=== PATIENT | female | born 1970 | race American Indian/Alaskan Native ===

== ENCOUNTER 2020-07-13 07:30 | Day surgery (SDC) | payer BC, OTHER ==
[2020-07-10 14:53] LABS: Hematocrit 37.1 % (30.3-42.9); Hemoglobin 12.4 gm/dl (10.1-14.3); Mean Corpuscular HGB Conc 33 % (30-34); Mean Corpuscular Volume 92 fl (79-97); Platelet Count 247 K/mm3 (140-440); Red Blood Count 4.02 M/mm3 (3.65-5.03); Red Cell Distribution Width 14.4 % (13.2-15.2)
[2020-07-10 15:13] LABS: BUN/Creatinine Ratio 17; Blood Urea Nitrogen 10 mg/dL (7-17); Calcium 8.8 mg/dL (8.4-10.2); Hemolysis Index 55
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
[2020-07-13] MEDS ORDERED: HYDROmorphone 1 MG/1 ML INJ IV PRN ×2 (07:54)
[2020-07-13] MEDS ORDERED: ONDANSETRON 4 MG/2 ML INJ IV PRN (07:54)
[2020-07-13] MEDS ORDERED: LACTATED RINGERS 1,000 ML IV SCH (08:00)
[2020-07-13] MEDS ORDERED: MIDAZOLAM 2 MG/2 ML INJ IV NR (08:00)
[2020-07-13] MEDS ORDERED: LOPERAMIDE 2 MG CAP PO ONE (08:05)
--- NOTE | 2020-07-13 08:05 | Anesthesia Day of Surgery ---
Anesthesia Day of Surgery - Day of Surgery Patient Examined: Yes Patient H&P Reviewed: Yes Patient is NPO: Yes
--- NOTE | 2020-07-13 08:07 | Anesthesia Consultation ---
Anesthesia Consult and Med Hx Date of service: 07/13/20 - Airway Anesthetic Teeth Evaluation: Crowns, Bridges ROM Head & Neck: Adequate Mental/Hyoid Distance: Adequate Mallampati Class: Class II Intubation Access Assessment: Good - Pre-Operative Health Status ASA Pre-Surgery Classification: ASA2 Proposed Anesthetic Plan: General - Pulmonary Hx Asthma: Yes (Not treated in over a year. +2FS) - Cardiovascular System Hx Hypertension: Yes - Central Nervous System Hx Psychiatric Problems: No - Gastrointestinal Hx Gastroesophageal Reflux Disease: Yes (Occasional) - Endocrine Hx Non-Insulin Dependent Diabetes: Yes - Hematic Hx Anemia: Yes (Past hx) - Other Systems Hx Cancer: No
[2020-07-13] MEDS ORDERED: propofoL 200 MG/20 ML VIAL IV ONE (08:41)
[2020-07-13] MEDS ORDERED: LIDOCAINE MPF (2%) 20 MG/1 ML VIAL 5 ML ONE (08:41)
[2020-07-13] MEDS ORDERED: HYDROmorphone 1 MG/1 ML INJ ONE (08:41)
[2020-07-13] MEDS ORDERED: SODIUM CHLORIDE 0.9% IRR 1,500 ML BOTTLE IR ONE (09:00)
[2020-07-13] MEDS ORDERED: SODIUM CHLORIDE 0.9% IRRIG SOLN 3000 ML IR ONE (09:00)
[2020-07-13] MEDS ORDERED: ONDANSETRON 4 MG/2 ML INJ ONE (09:38)
[2020-07-13] MEDS ORDERED: KETOROLAC 30 MG/1 ML INJ ONE (09:38)
--- NOTE | 2020-07-13 09:46 | Operative Report ---
Operative Report Operative Report: Date of procedure: July 13, 2020 Pre-operative diagnosis: Menometrorrhagia and leiomyomata Post-operative diagnosis: Same Procedure name(s): Operative hysteroscopy with dilatation curettage Surgeon: Tesfaye Bae MD Metaphysics Teacher: [] Anesthesia: General EBL: Minimal Complications: None Findings: Patient with distorted endometrial cavity due to extrinsic pressure from leiomyomata the tubal opening were seen bilaterally there were no intracavitary masses seen just thickened endometrium Specimen(s): Endometrial curettage Procedure: Patient was brought to operating room. Where general anesthesia was induced on difficulty. She was placed in the dorsal lithotomy position. P repped and draped in usual sterile manner. Urinary bladder was emptied with a red rubber catheter. Speculum was placed in the vagina. Tenaculum was placed at 12:00. The cervix was dilated progressively to operative hysteroscope could be placed without any difficulty. The hysteroscope was placed through the cervical os without any complications with the findings noted above. Perform a banjo curetting until a gritty sensation was felt throughout the uterine cavity removed a moderate amount of tissue. The passes with the polyp forceps revealed no further tissue again the banjo curetting was done without any return of further tissue. Post procedure hysteroscopy showed a thinner endometrium. Our instruments are removed. The patient tolerated the procedure well and was awakened in the operating room. Accompanied to the recovery room in good condition
--- NOTE | 2020-07-13 09:52 | Short Stay Summary ---
Short Stay Documentation Date of service: 07/13/20 - History Past Medical History: other (SEE HPI FOR DETAILS) Past Surgical History: Other (SEE HPI FOR DETAILS) Social history: full code, other (SEE HPI FOR DETAILS) - Allergies and Medications Current Medications: Allergies No Known Allergies Allergy (Verified 07/13/20 08:07) Home Medications Medication Instructions Recorded Confirmed Last Taken Type Dapagliflozin/Saxagliptin HCl 1 each PO DAILY 07/06/20 07/13/20 07/12/20 History [Qtern 10 mg-5 mg Tablet] Losartan [Cozaar] 50 mg PO QDAY 07/06/20 07/13/20 07/12/20 20:30 History Norethindrone-Ethinyl Estrad 1 tab PO DAILY 07/06/20 07/13/20 07/12/20 History [Alyacen 1-35 28 Tablet] DOXYCYCLINE Hyclate [Vibramycin 100 mg PO Q12HR #14 capsule 07/13/20 Unknown Rx CAP] Ibuprofen [Motrin 800 MG tab] 800 mg PO Q6H PRN #30 tablet 07/13/20 Unknown Rx Active Medications Hydromorphone HCl (Dilaudid) 0.25 mg IV Q10MIN PRN PRN Reason: Pain, Moderate (4-6) Hydromorphone HCl (Dilaudid) 0.5 mg IV Q10MIN PRN PRN Reason: Pain , Severe (7-10) Lactated Ringer's (Lactated Ringers) 1,000 mls @ 125 mls/hr IV DIRECT ELLEN Last Admin: 07/13/20 08:35 Dose: 125 mls/hr Documented by: Midazolam HCl (Versed) 2 mg IV PREOP NR Stop: 07/13/20 23:59 Last Admin: 07/13/20 08:51 Dose: 2 mg Documented by: Ondansetron HCl (Zofran) 4 mg IV ONCE PRN PRN Reason: Nausea And Vomiting - Physical exam General appearance: no acute distress HEENT: Atraumatic Lungs: Normal air movement Breasts: deferred Heart: Regular rate Gastrointestinal: normal, no tenderness, no distended Rectal Exam: no deferred Neurological: Normal gait - Brief post op/procedure progress note Date of procedure: 07/13/20 (See dictated operative note) - Hospital course Hospital course: Patient was admitted underwent the above him procedure without any co mplications. Patient will be discharged with follow-up in office in 1-2 weeks for postop check. - Disposition Condition at discharge: Good Disposition: DC-01 TO HOME OR SELFCARE - Discharge Diagnoses (1) Menometrorrhagia Status: Chronic (2) Intramural leiomyoma of uterus Status: Chronic Short Stay Discharge Plan Activity: no restrictions Diet: regular Additional Instructions: Patient office for fever chills, nausea, vomiting, pain uncontrolled by pain relief or extreme any heavy vaginal bleeding. Follow up with: LAUREN SALAZAR MD [Primary Care Provider] - 7 Days Prescriptions: Ibuprofen [Motrin 800 MG tab] 800 mg PO Q6H PRN #30 tablet PRN Reason: Pain DOXYCYCLINE Hyclate [Vibramycin CAP] 100 mg PO Q12HR #14 capsule
[2020-07-13 12:10] VITALS: BP 125/74
--- NOTE | 2020-07-13 15:31 | Post Anesthesia Evaluation ---
- Post Anesthesia Evaluation Patient Participated: Yes Airway Patent: Yes Stable Respiratory Function: No Nausea/Vomiting: Yes Temp > 96.8F: Yes Pain Manageable: Yes Adequeate Hydration: Yes Anesthesia Complications: No Block Receding Appropriately: Not Applicable Patient on Ventilator: No
== END 2020-07-13 07:31 | disposition home or self-care (01) ==
LOC: OR 07:30
PROVIDERS: ATTEND Obstetrics & Gynecology
DX: N92.1 Excessive and frequent menstruation with irregular cycle (principal); D25.1 Intramural leiomyoma of uterus; I10 Essential (primary) hypertension; J45.909 Unspecified asthma, uncomplicated; K21.9 Gastro-esophageal reflux disease without esophagitis; E11.9 Type 2 diabetes mellitus without complications; Z79.899 Other long term (current) drug therapy; Z98.891 History of uterine scar from previous surgery; Z98.890 Other specified postprocedural states
CPT/HCPCS: 36415; 58558; 80048; 82962; 84703; 85027; 88305; A4217; J1170; J1885; J2250; J2405; J2704; J7120

== ENCOUNTER 2021-07-18 08:00 | Day surgery (SDC) | payer BC ==
[2021-07-15 10:12] LABS: Basophils # (Auto) 0.1 K/mm3 (0.0-0.1); Eosinophils # (Auto) 0.3 K/mm3 (0.0-0.4); Eosinophils % (Auto) 3.4 % (0.0-4.3); Hematocrit 39.7 % (30.3-42.9); Hemoglobin 13.1 gm/dl (10.1-14.3); Lymphocytes # (Auto) 1.6 K/mm3 (1.2-5.4); Lymphocytes % (Auto) 20.8 % (13.4-35.0); Mean Corpuscular HGB Conc 33 % (30-34); Mean Corpuscular Volume 93 fl (79-97); Monocytes # (Auto) 0.4 K/mm3 (0.0-0.8); Monocytes % (Auto) 4.8 % (0.0-7.3); Platelet Count 241 K/mm3 (140-440); Red Blood Count 4.29 M/mm3 (3.65-5.03); Red Cell Distribution Width 14.3 % (13.2-15.2)
[2021-07-15 10:18] LABS: Blood Urea Nitrogen 11 mg/dL (7-17); Calcium 9.6 mg/dL (8.4-10.2); Hemolysis Index 1
[2021-07-15 10:25] LABS: BUN/Creatinine Ratio 22
--- NOTE | 2021-07-15 10:37 | Anesthesia Consultation ---
Anesthesia Consult and Med Hx Date of service: 07/18/21 - Airway Anesthetic Teeth Evaluation: Good, Bridges ROM Head & Neck: Adequate Mental/Hyoid Distance: Adequate Mallampati Class: Class III Intubation Access Assessment: Possibly Difficult - Pulmonary Exam CTA: Yes - Cardiac Exam Cardiac Exam: RRR - Pre-Operative Health Status ASA Pre-Surgery Classification: ASA2 Proposed Anesthetic Plan: General - Pulmonary Hx Smoking: No Hx Asthma: Yes (no recent inhaler use) Hx Respiratory Symptoms: No - Cardiovascular System Hx Hypertension: Yes Hx Heart Attack/AMI: No Hx Percutaneous Transluminal Coronary Angioplasty (PTCA): No Hx Cardia Arrhythmia: No - Central Nervous System Hx Neuromuscular Disorder: Yes (RLE neuropathy; work up ongoing) CVA: No - Endocrine Hx Renal Disease: No Hx Liver Disease: No Hx Non-Insulin Dependent Diabetes: Yes Hx Thyroid Disease: No - Other Systems Hx Obesity: Yes (BMI 34) - Additional Comments Anesthesia Medical History Comments: Reports hx awareness under anesthesia dur ing myomectomy and during under GA.
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
[~2021-07-18 08:00] MED LIST: ACETAMINOPHEN 500 MG TAB PO SCH; BUPIVACAINE/PF (0.25%) 2.5 MG/ML 30 ML VIAL INFILTRATI ONE; CELECOXIB 200 MG CAP PO NR; GABAPENTIN 300 MG CAP PO NR; INSULIN REGULAR, HUMAN 100 UNITS/1 ML SUB-Q SCH; KETAMINE/STERILE WATER 50 MG/ML SYRINGE ONE; LACTATED RINGERS 1,000 ML IV SCH; LIDOCAINE PF 100 MG/5 ML (CARDIAC SYRINGE) IV ONE; MIDAZOLAM 2 MG/2 ML INJ IV NR; NEOMY 40 MG/POLYMYXIN B 200,000 UNITS/ML (GU) AMPULE IR ONE; ONDANSETRON 4 MG/2 ML INJ ONE; ROCURONIUM 50 MG/5 ML INJ IV ONE; SCOPOLAMINE TRANSDERMAL PATCH 72 HR TD NR; ceFAZolin/STERILE WATER 2 GM/20 ML SYRINGE IV NR; ceFAZolin/Water 2 GM/20 ML 2 GM/20 ML SYRINGE IV SCH; dexAMETHasone 20 MG/5 ML VIAL ONE; fentaNYL 100 MCG/2 ML INJ IV PRN; propofoL 200 MG/20 ML VIAL IV ONE
--- NOTE | 2021-07-18 08:44 | Anesthesia Day of Surgery ---
Anesthesia Day of Surgery - Day of Surgery Patient Examined: Yes Patient H&P Reviewed: Yes Patient is NPO: Yes
[2021-07-18] MEDS ORDERED: ePHEDrine SULFATE 50 MG/1 ML INJ ONE (08:51)
[2021-07-18] MEDS ORDERED: ONDANSETRON 4 MG/2 ML INJ IV PRN (09:00)
[2021-07-18] MEDS ORDERED: oxyCODONE /ACETAMINOPHEN 5-325MG TAB PO PRN (09:00)
[2021-07-18] MEDS ORDERED: SODIUM CHLORIDE 0.9% IRR 1,500 ML BOTTLE IR ONE (09:01)
[2021-07-18] MEDS ORDERED: NEOMY 40 MG/POLYMYXIN B 200,000 UNITS/ML (GU) AMPULE IR ONE (09:01)
[2021-07-18] MEDS ORDERED: SODIUM CHLORIDE 0.9% IRRIG SOLN 2000 ML IR ONE (09:02)
[2021-07-18] MEDS ORDERED: METHYLENE BLUE 50 MG/10 ML AMP ONE (09:34)
[2021-07-18] MEDS ORDERED: PHENYLEPHRINE/NS 1,000 MCG/10 ML SYRINGE (OR USE) IV ONE ×2 (09:35→11:00)
[2021-07-18] MEDS ORDERED: METHYLENE BLUE 50 MG/10 ML AMP IRRIGATION ONE (09:38)
[2021-07-18] MEDS ORDERED: LOSARTAN 50 MG TAB PO SCH (10:00)
[2021-07-18] MEDS ORDERED: HYDROmorphone 1 MG/1 ML INJ ONE (10:42)
[2021-07-18] MEDS ORDERED: ROCURONIUM 50 MG/5 ML INJ IV ONE (10:50)
[2021-07-18] MEDS ORDERED: GLYCOPYRROLATE 0.4 MG/2 ML INJ ONE (10:59)
[2021-07-18] MEDS ORDERED: NEOSTIGMINE 10MG/10 ML INJ MDV ONE (10:59)
[2021-07-18] MEDS ORDERED: KETOROLAC 30 MG/1 ML INJ ONE (11:33)
[2021-07-18] MEDS ORDERED: KETOROLAC 30 MG/1 ML INJ IV SCH (11:35)
--- NOTE | 2021-07-18 11:49 | Operative Report ---
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 Fibroid uterus bilaterally interrupted fallopian tubes with normal ovaries bilaterally Specimen(s): Uterus with cervix and bilateral fallopian tubes Procedure: Patient was brought to the operating room where general anesthesia was induced without difficulty. Patient was placed in the dorsal lithotomy position. Prepped and draped in the usual sterile manner for robotic procedure. Erazo catheter was placed without difficulty. Speculum was placed in the vagina. A medium V-Care Uterine manipulator was placed without difficulty. Attention was now switched to the patient's abdomen. A vertical supra-umbilicus incision was made with a scalpel. A 10-12 trocar was placed in this incision under direct visualization. Intra-abdominal placement was verified with no evidence of internal organ damage. The patient was insufflated approximately 3-1/2 L of CO2 gas. She was placed in Trendelenburg position. The patient pelvic findings were noted as above. It was determined that the patient was a candidate for robotic procedure. On both sides the umbilical incision at about 8 cm, incisions were made for robotic trocars. Each robotic trocar was placed under direct visualization with no evidence of internal organ damage. One 5 mm trocar was placed 2 fingerbreadths above the right iliac crest. A 5 mm camera was placed in the right lower quadrant trocar, the 10-12 trocar was removed and a Ignacio Queen laparoscopic port closure device was placed through this i ncision under direct visualization with no evidence of internal organ damage. The camera was then replaced into this port. At this time the patient was placed in extreme Trendelenburg. The da Donn robot was then docked on the patient's left side. The trocars connected to the robot appropriately robotic instruments were placed under direct visualization no evidence of internal organ damage.. At this time I took my place under the robotic operating treadwell. The omental adhesions were then taken down robotic scissors in order to visualize the patient's pelvis. At this time the thick adhesions between the uterus and anterior abdominal wall also was taken down sharply with the robotic scissors carefully until I reached a point where I could not distinguish the location of the urinary bladder. At this time I decided to start the process of isolating the uterine vasculature in order to visualize the vesicular uterine junction better. Starting on the patient's right side the ureter was identified and found to be out of the operative field. Using the robotic vessel sealer the mesosalpinx under the fallopian tube were cauterized and cut starting from the distal end. Utero-ovarian complex was then cauterized and cut. This was followed by cauterizing and cutting the right fallopian tube and right round ligament. The broad ligament was then opened. The bladder flap was formed ant eriorly. The posterior broad ligament was then excised. The uterine vessels were skeletonized. The ureter was clearly seen out of the operative field. The uterine serosa was incised anteriorly with some separation from the bladder noted informing the bladder flap. The bladder was pushed away from the right side of the anterior uterus. The right uterine vessels were then cauterized and cut. Attention was then switched to the patient's left side. The same procedure was repeated on the left side with perform the salpingectomy followed by isolating the uterine vessels cauterized and cutting and completing the bladder flap from the left side. At this time the uterus was appearing very cyanotic. At this time we filled the bladder with methylene blue 180 cc to better distinguish the junction between the anterior uterus and bladder. With the bladder distended the adhesions between the anterior uterus and bladder was completed with no evidence of damage to urinary bladder. Throughout the case there was no evidence of spillage of the methylene blue into the patient's pelvis. After inspecting the bladder flap to insured no evidence of bladder injury, the colpotomy was then started. Incision started at 6:00 until the V- Care could be seen. This incision was extended from 6:00 to 9:00. Then from 6:00 to 3:00. Then from 9:00 to 12:00. This incision was extended from 3:00 to 12:00. At this time colpotomy was complete with no evidence of adjacent organ damage. The plastic surgery coordinator remove the uterus from through the colpotomy site. The vaginal cuff was irrigated and cauterized and found to be hemostatic. The cuff was closed with roboticly using 0 V- Lock suture. This closure was hemostatic after irrigation and Bovie. All pedicles were inspected and found to be hemostatic. The ureters were identified bilaterally and found to be functioning normal. The patient had clear urine in the Erazo catheter with no evidence of mixture with blood. Lazara was placed on the cuff and pedicles for postoperative hemostasis . All instruments were then removed. The large trocar sites were closed in layers 2-0 Vicryl and 4-0 Monocryl. The smaller incisions were closed subcuticularly with 4-0 Monocryl. Dermabond was placed over the skin incisions. The patient tolerated procedure well. She was awakened in the operating room and accompanied to the recovery room in good condition.
[2021-07-18] MEDS: HYDROmorphone 1 MG/1 ML INJ IV PRN ×2 (13:01→15:42)
[2021-07-18] MEDS ORDERED: INSULIN REGULAR, HUMAN 100 UNITS/1 ML SUB-Q ONE ×2 (17:54→19:00)
--- NOTE | 2021-07-18 17:54 | Post Anesthesia Evaluation ---
- Post Anesthesia Evaluation Patient Participated: Yes Airway Patent: Yes Stable Respiratory Function: Yes Nausea/Vomiting: No Temp > 96.8F: Yes Pain Manageable: Yes Adequeate Hydration: Yes Anesthesia Complications: No Other Comments: Patient in PACU for several hours and has been unable to urinate despite IV and PO fluids. Per surgeon orders, lobo catheter will be placed and patient will be admitted. OK for transfer to floor pending bed availability.
[2021-07-18 22:29] VITALS: BP 134/86
== END 2021-07-18 23:59 | disposition home or self-care (01) ==
LOC: OR 08:00 → OB 17:38 → UNDOADMOB 17:38 → UNDODISOB 19:43 → OR 23:59
PROVIDERS: ATTEND Obstetrics & Gynecology
DX: N92.1 Excessive and frequent menstruation with irregular cycle (principal); N94.6 Dysmenorrhea, unspecified; K66.0 Peritoneal adhesions (postprocedural) (postinfection); Z20.822 Contact with and (suspected) exposure to COVID-19; D25.1 Intramural leiomyoma of uterus; I10 Essential (primary) hypertension; E11.9 Type 2 diabetes mellitus without complications; R10.2 Pelvic and perineal pain; Z90.710 Acquired absence of both cervix and uterus; Z98.890 Other specified postprocedural states; J45.909 Unspecified asthma, uncomplicated; E66.9 Obesity, unspecified
CPT/HCPCS: 36415; 58573; 64488; 80048; 82962; 84703; 85025; 86850; 86900; 86901; 88307; A4217; J0690; J1100; J1170; J1885; J2001; J2250; J2370; J2405; J2704; J2710; J3010; J3490; J7120; Q9968; S2900; U0003; 64447; 64450; G0378; J1815